=== PATIENT | female | born 1950 | race Caucasian/White ===

== ENCOUNTER 2018-09-04 09:34 | Emergency (ER) | payer OTHER ==
[2018-09-04] MEDS ORDERED: NS 0.9% 1000 ML** 1,000 ML IV ONE (10:47)
--- NOTE | 2018-09-04 10:48 | ED ---
Throat Pain/Nasal Congestion - HPI Summary HPI Summary: Patient is a 68 y/o female who presents to the ED c/o epistaxis. At 8:20 this morning she began having constant bleeding from her left nare. Patient has a hx of Hereditary Hemorrhagic Telangiectasia and anemia, and frequently gets nosebleeds. She currently has a clip for compression over her nose. Patient notes that she normally treats the nosebleeds with compression at home, and states that she does not want packing because it can pull the scab off when removed. 2 weeks ago she had a severe epistaxis episode that caused her BP to plummet. She also notes that she vomited once while in the ED from swallowing blood. Patient is a former smoker. - History of Current Complaint Chief Complaint: EDEpistaxis Time Seen by Provider: 09/04/18 10:12 Hx Obtained From: Patient Onset/Duration: Sudden Onset, Lasting Hours - 8:20 this morning, Still Present Associated Signs And Symptoms: Positive: Negative Cough: None Related History: Smoking - former, Other (Noted In Comments) - HHT and anemia - Allergies/Home Medications Allergies/Adverse Reactions: Allergies Allergy/AdvReac Type Severity Reaction Status Date / Time erythromycin base AdvReac Rash Verified 09/04/18 09:52 levofloxacin [From Levaquin] AdvReac Nausea Verified 09/04/18 09:52 Penicillins AdvReac Hives Verified 09/04/18 09:42 tetracycline AdvReac Rash Verified 09/04/18 09:52 PMH/Surg Hx/FS Hx/Imm Hx Endocrine/Hematology History: Reports: Hx Anemia, Other Endocrine/Hematological Disorders - Hereditary Hemorrhagic Telangiectasia Respiratory History: Reports: Hx Asthma EENT History: Reports: Other - frequent epistaxis Infectious Disease History: No Infectious Disease History: Denies: Traveled Outside the [place] in Last 30 Days - Family History Known Family History: Positive: Other - HHT - Social History Alcohol Use: Rare Hx Substance Use: No Substance Use Type: Reports: None Hx Tobacco Use: Yes Smoking Status (MU): Former Smoker Review of Systems Positive: Epistaxis Positive: Vomiting All Other Systems Reviewed And Are Negative: Yes Physical Exam - Summary Physical Exam Summary: Appearance: Well appearing, no pain distress Skin: warm, dry, reflects adequate perfusion Head/face: normal Eyes: EOMI, RUDDY ENT: blood clot in posterior pharynx, nasal compression dressing over the nose Neck: supple, non-tender Respiratory: CTA, breath sounds present Cardiovascular: RRR, pulses symmetrical Abdomen: non-tender, soft Musculoskeletal: normal, strength/ROM intact Neuro: normal, sensory motor intact, A&Ox3 Triage Information Reviewed: Yes Vital Signs On Initial Exam: Initial Vitals Temp Pulse Resp BP Pulse Ox 98.8 F 109 20 131/73 98 09/04/18 09:37 09/04/18 09:37 09/04/18 09:37 09/04/18 09:37 09/04/18 09:37 Vital Signs Reviewed: Yes Diagnostics - Vital Signs Vital Signs Temp Pulse Resp BP Pulse Ox 09/04/18 10:17 94 101/54 97 09/04/18 09:37 98.8 F 109 20 131/73 98 - Laboratory Result Diagrams: 09/04/18 10:12 09/04/18 10:12 Lab Statement: Any lab studies that have been ordered have been reviewed, and results considered in the medical decision making process. Re-Evaluation - Re-Evaluation First Eval Re-Evaluation Time: 11:25 Change: Unchanged Comment: Discussed bloodwork results. Pt does not want any interventions, and would like to just be observed then discharged. EENT Course/Dx - Course Course Of Treatment: Patient is a 68 y/o female who presents to the ED c/o epistaxis since 8:20 this morning. She has a hx of Hereditary Hemorrhagic Telangiectasia and anemia, and frequently gets nosebleeds. A physical exam revealed blood clot in posterior pharynx, nasal compression dressing over the nose. Bloodwork/UA obtained. Patient did not want any interventions. Final dx is epistaxis, and patient is discharged. She is agreeable with this plan. - Differential Diagnoses Differential Diagnoses: Epistaxis - Diagnoses Provider Diagnoses: Epistaxis, Osler hemorrhagic telangiectasia syndrome Discharge - Sign-Out/Discharge Documenting (check all that apply): Patient Departure - Discharge Patient Received Moderate/Deep Sedation with Procedure: No - Discharge Plan Condition: Improved Disposition: HOME Patient Education Materials: Nosebleed (ED) Referrals: [facility] [place] [facility]ERRAL [Outside] (3 days) Additional Instructions: RETURN TO THE ED WITH ANY NEW OR WORSENING SYMPTOMS. - Billing Disposition and Condition Condition: IMPROVED Disposition: Home - Attestation Statements Document Initiated by Scribe: Yes Documenting Scribe: Jayshree Azari Provider For Whom Scribe is Documenting (Include Credential): Ishmael Borrego MD Scribe Attestation: IJayshree, scribed for Ishmael Borrego MD on 09/04/18 at 1226. Scribe Documentation Reviewed: Yes Provider Attestation: The documentation as recorded by the Jayshree rai accurately reflects the service I personally performed and the decisions made by me, Ishmael Borrego MD Status of Scribe Document: Viewed
[2018-09-04 10:58] LABS: ABS Basophils 0.1 10^3/ul (0-0.2); ABS Eosinophils 0 10^3/ul (0-0.6); ABS Lymphocytes 0.6 10^3/ul (1.0-4.8); ABS Monocytes 0.4 10^3/ul (0-0.8); ABS Neutrophils 3.3 10^3/ul (1.5-7.7); ABS Nucleated RBC 0 10^3/ul; Eosinophil % 1.1 %; Hematocrit 28 % (33-41); Hemoglobin 8.9 g/dL (12.0-16.0); Lymphocyte % 12.9 %; Mean Corpuscular HGB Conc 32 g/dL (31-36); Mean Corpuscular Hemoglobin 27 pg (27-31); Mean Corpuscular Volume 85 fL (80-97); Mean Platelet Volume 8.6 fL (7.4-10.4); Nucleated Red Blood Cells % 0; Platelet Count 266 10^3/uL (150-450); Red Blood Count 3.27 10^6 /uL (3.70-4.87); Red Cell Distribution Width 18 % (10.5-15); White Blood Count 4.3 10^3/uL (3.5-10.8)
[2018-09-04 11:11] LABS: Albumin 3.7 g/dL (3.2-5.2); Albumin/Globulin Ratio 1.5 (1-3); BUN/Creatinine Ratio 28.4 (8-20); Calcium 9.4 mg/dL (8.6-10.3); EGFR African American 94.2 (>60); EGFR Non-African American 77.8 (>60); Globulin 2.5 g/dL (2-4); Potassium 3.9 mmol/L (3.5-5.0); Total Bilirubin 0.3 mg/dL (0.2-1.0); Total Protein 6.2 g/dL (6.4-8.9)
[2018-09-04 11:14] LABS: Activated Partial Thrombo Time 32.4 seconds (26.0-36.3); INR 1.02 (0.82-1.09)
[2018-09-04 12:24] VITALS: BP 98/73
== END 2018-09-04 12:23 | disposition home or self-care (01) ==
LOC: ED 09:34
DX: R04.0 Epistaxis (principal); I78.0 Hereditary hemorrhagic telangiectasia; Z88.3 Allergy status to other anti-infective agents; Z88.0 Allergy status to penicillin; Z88.8 Allergy status to other drugs, medicaments and biological substances
CPT/HCPCS: 36415; 80053; 85025; 85610; 85730; 86850; 86900; 86901; 96360; 99282